=== PATIENT | female | born 1955 | race Two or more races ===

== ENCOUNTER 2017-04-26 15:25 | Emergency (ER) | payer SELFPAY ==
[~2017-04-26] VITALS: Ht 162.6 cm; Wt 82.6 kg
[2017-04-26 16:05] VITALS: BP 99/68
--- NOTE | 2017-04-26 16:55 | PHYS DOC ---
Past History Past Medical History: A-Fib, Anxiety, Depression, Migraines Past Surgical History: Hysterectomy, Other Alcohol Use: Rarely Drug Use: None Adult General Chief Complaint Chief Complaint: SYNCOPE HPI HPI Patient is a 61 year old F who presents with syncope just prior to arrival. Pallavi states that she became dizzy. She stood up and became more dizzy and subsequently passed out. She states that she did hit her head however she has no headache. She has no symptoms at this time. And her symptoms resolved without intervention. She was recently diagnosed with A. fib. Her medications include Toprol 25 mg and aspirin. She has no other blood thinners. Review of Systems Review of Systems Constitutional: Denies fever or chills [] Eyes: Denies change in visual acuity, redness, or eye pain [] HENT: Denies nasal congestion or sore throat [] Respiratory: Denies cough or shortness of breath [] Cardiovascular: No additional information not addressed in HPI [] GI: Denies abdominal pain, nausea, vomiting, bloody stools or diarrhea [] : Denies dysuria or hematuria [] Musculoskeletal: Denies back pain or joint pain [] Integument: Denies rash or skin lesions [] Neurologic: Denies headache, focal weakness or sensory changes [] Endocrine: Denies polyuria or polydipsia [] All other systems were reviewed and found to be within normal limits, except as documented in this note. Family History Family History No pertinent family medical history was reported Current Medications Current Medications Current medications were reviewed Allergies Allergies Allergies were reviewed Physical Exam Physical Exam Constitutional: Well developed, well nourished, no acute distress, non-toxic appearance. [] HENT: Normocephalic, atraumatic, Eyes: EOMI, conjunctiva normal, no discharge. [] Neck: Normal range of motion, no tenderness, supple, no stridor. [] Cardiovascular: Irregularly irregular Lungs & Thorax: Bilateral breath sounds clear to auscultation [] Abdomen: Bowel sounds normal, soft, no tenderness, no masses, no pulsatile masses. [] Skin: Warm, dry, no erythema, no rash. [] Back: No tenderness, no CVA tenderness. [] Extremities: No tenderness, no cyanosis, no clubbing, ROM intact, no edema. [] Neurologic: Alert and oriented X 3, normal motor function, normal sensory function, no focal deficits noted. [] Psychologic: Affect normal, judgement normal, mood normal. [] Current Patient Data Vital Signs Vital Signs Date Time Temp Pulse Resp B/P (MAP) Pulse Ox O2 Delivery O2 Flow Rate FiO2 04/26/17 16:05 97.5 96 20 94 Room Air EKG EKG Irregularly irregular with a rate of 103, no ST segment changes, normal QRS interval Radiology/Procedures Radiology/Procedures [] Course & Med Decision Making Course & Med Decision Making Pertinent Labs and Imaging studies reviewed. (See chart for details) Labs and imaging were declined. Admission was declined Dragon Disclaimer Dragon Disclaimer This electronic medical record was generated, in whole or in part, using a voice recognition dictation system. Departure Departure: Impression: Primary Impression: Syncope Disposition: HOME, SELF-CARE Condition: STABLE Patient Instructions: Syncope Additional Instructions: Pallavi was seen in the emergency department after passing out. No emergency medical condition was found on history or physical exam. She was advised to return to the emergency room as soon as possible if she develops new or worsening symptoms. She was also advised follow-up with her primary care doctor in the next 3-5 days for further management. Problem Qualifiers Primary Impression: Syncope Syncope type: unspecified Qualified Codes: R55 - Syncope and collapse NEENA PATTERSON MD Apr 26, 2017 16:55
== END 2017-04-26 17:18 | disposition home or self-care (01) ==
LOC: ER 15:25
DX: R55 Syncope and collapse (principal); G43.909 Migraine, unspecified, not intractable, without status migrainosus; I48.91 Unspecified atrial fibrillation
CPT/HCPCS: 99284